=== PATIENT | female | born 1980 | race Caucasian/White ===

== ENCOUNTER 2017-09-25 12:14 | Emergency (ER) | payer OTHER ==
[~2017-09-25] VITALS: Ht 160 cm; Wt 81.6 kg
[~2017-09-25 12:14] MED LIST: HYDR-971 PO; PRED50TA PO
[2017-09-25] MEDS ORDERED: FLUORESCEIN 1MG EYE STRIP. OS ONE (13:00)
[2017-09-25] MEDS ORDERED: TETRACAINE 0.5% OPHTH SOLUTION 4ML BOTTLE. OS ONE (13:00)
[2017-09-25] MEDS ORDERED: NEOM10DR9 TOP (13:09)
--- NOTE | 2017-09-25 13:09 | PHYS DOC ---
Past History Past Medical History: Anxiety, Depression Past Surgical History: Alcohol Use: None Drug Use: None Adult General Chief Complaint Chief Complaint: EYE PROBLEMS HPI HPI 36-year-old at 31 weeks of gestation states she had some hair in her left eye 4 days ago and tried to remove the hair with rubbing her eye and since then has erythema and pain in left eye that gradually getting worse. Patient complaining of yellow discharge in the morning. Patient denies fever and chills , nausea and vomiting. Patient complaining of mild headache. Patient does not wear contact lenses. Review of Systems Review of Systems Constitutional: Denies fever or chills [] Eyes: Reports change in visual acuity, redness, eye pain [] HENT: Denies nasal congestion or sore throat [] Respiratory: Denies cough or shortness of breath [] Cardiovascular: No additional information not addressed in HPI [] GI: Denies abdominal pain, nausea, vomiting, bloody stools or diarrhea [] : Denies dysuria or hematuria [] Musculoskeletal: Denies back pain or joint pain [] Integument: Denies rash or skin lesions [] Neurologic: Denies headache, focal weakness or sensory changes [] Endocrine: Denies polyuria or polydipsia [] All other systems were reviewed and found to be within normal limits, except as documented in this note. Current Medications Current Medications Current Medications Medications (Trade) Dose Ordered Sig/Armaan Start Time Stop Time Status Last Admin Dose Admin Fluorescein Sodium (Ful-Mariana 1mg) 1 strip 1X ONCE 09/25/17 13:00 09/25/17 13:01 DC Tetracaine HCl (Tetracaine) 1 drop 1X ONCE 09/25/17 13:00 09/25/17 13:01 DC Allergies Allergies Allergies Coded Allergies Type Severity Reaction Last Updated Verified quetiapine Allergy Unknown 09/23/15 Yes Physical Exam Physical Exam Constitutional: Well developed, well nourished, mild distress, non-toxic appearance. [] HENT: Normocephalic, atraumatic Eyes: PERRLA, EOMI, left conjunctival erythema and eyelid edema, positive fluorescein test, vision acuity 20 over 20 right eye and 20/25 in left eye Neck: Normal range of motion, no tenderness, supple, no stridor. [] Cardiovascular:Heart rate regular rhythm, no murmur [] Lungs & Thorax: Bilateral breath sounds clear to auscultation [] Neurologic: Alert and oriented X 3, normal motor function, normal sensory function, no focal deficits noted. [] Psychologic: Affect normal, judgement normal, mood normal. [] Current Patient Data Vital Signs Vital Signs Date Time Temp Pulse Resp B/P (MAP) Pulse Ox O2 Delivery O2 Flow Rate FiO2 09/25/17 12:30 98.3 90 18 98 Room Air EKG EKG [] Radiology/Procedures Radiology/Procedures [] Course & Med Decision Making Course & Med Decision Making Evaluation of patient in ER showed 36-year-old female patient with corneal scratch and conjunctiva erythema chart for 4 days. Patient currently is . Prescription for ophthalmic antibiotic was given and patient instructed to follow with oracle forms developer if not getting better in 24-48 hours. Dragon Disclaimer Dragon Disclaimer This electronic medical record was generated, in whole or in part, using a voice recognition dictation system. Departure Departure: Impression: Primary Impression: Corneal abrasion Additional Impressions: Acute conjunctivitis of left eye Currently Disposition: 01 HOME, SELF-CARE (At 1302) Condition: IMPROVED Referrals: PCP,NO (PCP) Patient Instructions: Bacterial Conjunctivitis, Eye - Corneal Abrasion Additional Instructions: Avoid of rubbing your eye Follow-up with your primary care physician in 2-3 days Return to ER if not getting better Scripts Neomycin/Polymyxn B/Gramicidin ([id number] EYE DROP) 10 Ml Drops 2 DROP TOP Q4HRS for 7 Days, DROP Prov: ANGIE GUTIERREZ MD 09/25/17 Problem Qualifiers ANGIE GUTIERREZ MD September 25, 2017 13:09
[2017-09-25 13:14] VITALS: BP 118/81
== END 2017-09-25 13:15 | disposition home or self-care (01) ==
LOC: ER 12:14
DX: O9A.213 Injury, poisoning and certain other consequences of external causes complicating pregnancy, third trimester (principal); S05.02XA Injury of conjunctiva and corneal abrasion without foreign body, left eye, initial encounter; H10.32 Unspecified acute conjunctivitis, left eye; O26.893 Other specified pregnancy related conditions, third trimester; Z3A.31 31 weeks gestation of pregnancy; Z88.8 Allergy status to other drugs, medicaments and biological substances; X58.XXXA Exposure to other specified factors, initial encounter; Y93.89 Activity, other specified; Y99.8 Other external cause status; Y92.89 Other specified places as the place of occurrence of the external cause
CPT/HCPCS: 99283

== ENCOUNTER 2018-08-04 19:39 | Emergency (ER) | payer OTHER ==
[~2018-08-04 19:39] MED LIST changes: +HYDR-3165 PO; -HYDR-971 PO; +NEOM10DR9 TOP
--- NOTE | 2018-08-04 19:51 | ED.ADGEN ---
Past History Past Medical History: Anxiety, Depression Past Surgical History: Alcohol Use: None Drug Use: None Adult General Chief Complaint Chief Complaint ".. I just had a D/C or really a D & E at .. I have some nausea.. and discomfort..." HPI HPI Patient is a 37 year old female who presents with above hx and complaints subjective fever, nausea and malaise after history of D&C/D & E at . Patient reports no active current bleeding or significant vaginal discharge. No history immunosuppression. Discussed with patient would have to complete a exam and obtain labs on patient. 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 Patient did not receive a physical exam. Patient left before complete eval. Unaware pt. left until advised by nursing she had already departed. Review of Systems Review of Systems Constitutional: Subjective fever Eyes: Denies change in visual acuity, redness, or eye pain [] HENT: Denies nasal congestion or sore throat [] Respiratory: Denies cough or shortness of breath [] Cardiovascular: No additional information not addressed in HPI [] GI: Complaints of abdomen abdominal pain, nausea,. Denies vomiting, bloody stools or diarrhea [] : Denies dysuria or hematuria [] Musculoskeletal: Denies back pain or joint pain [] Integument: Denies rash or skin lesions [] Neurologic: Denies headache, focal weakness or sensory changes [] Endocrine: Denies polyuria or polydipsia [] All other systems were reviewed and found to be within normal limits, except as documented in this note. Family History Family History Noncontributory Current Medications Current Medications See nursing for home meds Allergies Allergies Allergies Coded Allergies Type Severity Reaction Last Updated Verified quetiapine Allergy Unknown 09/23/15 Yes Physical Exam Physical Exam Constitutional: Well developed, well nourished, reports moderate distress, non- toxic appearance. [] Patient left before exam Psychologic: Affect anxious, judgement normal, mood normal. [] Current Patient Data Vital Signs Vital Signs Date Time Temp Pulse Resp B/P (MAP) Pulse Ox O2 Delivery O2 Flow Rate FiO2 08/04/18 20:05 99.2 EKG EKG [] Radiology/Procedures Radiology/Procedures [] Course & Med Decision Making Course & Med Decision Making Pertinent Labs and Imaging studies reviewed. (See chart for details) [] Final Impression Final Impression 1. History of subjective fevers and abdomen discomfort-post D&C/D &E for demise. Left before completing evaluation Dragon Disclaimer Dragon Disclaimer This electronic medical record was generated, in whole or in part, using a voice recognition dictation system. Discharge Summary Visit Information Final Diagnosis Problems Medical Problems: (1) Left against medical advice Status: Acute Brief Hospital Course Allergies Allergies Coded Allergies Type Severity Reaction Last Updated Verified quetiapine Allergy Unknown 09/23/15 Yes Vital Signs Vital Signs Date Time Temp Pulse Resp B/P (MAP) Pulse Ox O2 Delivery O2 Flow Rate FiO2 08/04/18 20:05 99.2 Brief Hospital Course Ms. Gaines is a 37 old female who presented with subjective fevers and nausea post D&C/D& E at . Left before labs or exam. Discharge Information Condition at Discharge: Stable Dischare Medications Active Scripts Active [id number] Eye Drop (Neomycin/Polymyxn B/Gramicidin) 10 Ml Drops 2 Drop TOP Q4HRS 7 Days Prednisone 50 Mg Tablet 1 Tab PO DAILY [place] 5-325 Tablet (Hydrocodone Bit/Acetaminophen) 1 Each Tablet 1-2 Tab PO PRN Q6HRS PRN Dragon Disclaimer This chart was dictated in whole or in part using Voice Recognition software in a busy, high-work load, and often noisy Emergency Department environment. It may contain unintended and wholly unrecognized errors or omissions. HARRY PRUITT MD Aug 04, 2018 19:51
== END 2018-08-04 20:37 | disposition left against medical advice (07) ==
LOC: ER 19:39
DX: R50.82 Postprocedural fever (principal); G89.18 Other acute postprocedural pain; R10.9 Unspecified abdominal pain; R11.0 Nausea; R53.81 Other malaise; F41.9 Anxiety disorder, unspecified; F32.9 Major depressive disorder, single episode, unspecified; Z88.8 Allergy status to other drugs, medicaments and biological substances
CPT/HCPCS: 99281

== ENCOUNTER 2018-12-18 10:15 | Emergency (ER) | payer OTHER ==
[~2018-12-18] VITALS: Ht 160 cm; Wt 65.0 kg
[2018-12-18 10:23] VITALS: BP 127/72
[2018-12-18] MEDS ORDERED: MELO7.5T29 PO (10:33)
[2018-12-18] MEDS ORDERED: HYDR-3165 PO (10:33)
[2018-12-18] MEDS ORDERED: AMOX500T PO (10:33)
--- NOTE | 2018-12-18 10:33 | PHYS DOC ---
Past History Past Medical History: Anxiety, Depression, Other Additional Past Medical Histor: chronic pain management with Suboxone Past Surgical History: Smoking: Cigarettes Alcohol Use: None Drug Use: None Adult General Chief Complaint Chief Complaint: DENTAL PROBLEM HPI HPI Patient is a 37-year-old female presents complaining of right upper dental pain. This started 2 days ago. She has not seen a dentist but has an appointment scheduled for 2 days from now. Increased pain with touch. Notes swelling in her right face. No trauma. No fever. Cold also makes this worse. No difficulty swallowing. Times are moderate to severe in intensity.[] Review of Systems Review of Systems Constitutional: Denies fever or chills [] Eyes: Denies change in visual acuity, redness, or eye pain [] HENT: Denies nasal congestion or sore throat, see history of present illness [] Respiratory: Denies cough or shortness of breath [] Cardiovascular: No chest pain or palpitations[] GI: Denies abdominal pain, nausea, vomiting, bloody stools or diarrhea [] : Denies dysuria or hematuria [] Musculoskeletal: Denies back pain or joint pain [] Integument: Denies rash or skin lesions [] Neurologic: Denies headache, focal weakness or sensory changes [] Endocrine: Denies polyuria or polydipsia [] All other systems were reviewed and found to be within normal limits, except as documented in this note. Allergies Allergies Allergies Coded Allergies Type Severity Reaction Last Updated Verified quetiapine Allergy Unknown 09/23/15 Yes Physical Exam Physical Exam Constitutional: Well developed, well nourished, no acute distress, non-toxic appearance. [] HENT: Normocephalic, atraumatic, bilateral external ears normal, oropharynx moist, no oral exudates, tooth #2 has tenderness to percussion, there is wides pread dental DKA and multiple missing teeth. There is no drainable abscess appreciated. There is no evidence of Lokesh angina, uvula is midline. Nose normal. [] Eyes: PERRLA, EOMI, conjunctiva normal, no discharge. [] Neck: Normal range of motion, no tenderness, supple, no stridor. [] Cardiovascular:Heart rate regular rhythm, no murmur [] Lungs & Thorax: Bilateral breath sounds clear to auscultation [] Abdomen: Not examined. [] Skin: Warm, dry, no erythema, no rash. [] Back: No tenderness, no CVA tenderness. [] Extremities: No tenderness, no cyanosis, no clubbing, ROM intact, no edema. [] Neurologic: Alert and oriented X 3, normal motor function, normal sensory function, no focal deficits noted. [] Psychologic: Affect normal, judgement normal, mood normal. [] EKG EKG [] Radiology/Procedures Radiology/Procedures [] Course & Med Decision Making Course & Med Decision Making Pertinent Labs and Imaging studies reviewed. (See chart for details) Medical decision making: Patient appears to have appear apical abscess of tooth #2. There is no evidence of systemic toxicity. No meningitis or encephalitis. No peritonsillar abscess. We'll start patient on oral outpatient antibiotics and have her follow-up with her dentist as scheduled. Will also prescribe short-term pain medicine to assist during this episode.[] Dragon Disclaimer Dragon Disclaimer This electronic medical record was generated, in whole or in part, using a voice recognition dictation system. Departure Departure: Impression: Primary Impression: Dental abscess Disposition: 01 HOME, SELF-CARE Condition: IMPROVED Referrals: JON CHRISTIE MD (PCP) Follow-up in 2 days Patient Instructions: Dental Abscess Additional Instructions: Follow-up with your regular doctor in 2 days injured dentist as scheduled in 2 days. Take the medication as prescribed. Return to the ER if worsening pain, fever of more than 101, or any other concerns. Scripts Hydrocodone Bit/Acetaminophen ([place] 5-325 TABLET) 1 Each Tablet 1 TAB PO Q4-6HRS for severe pain, #20 TAB Prov: TOMER MEDINA DO 12/18/18 Meloxicam (MELOXICAM) 7.5 Mg Tablet 7.5 MG PO DAILY for PAIN, #20 TAB Prov: TOMER MEDINA DO 12/18/18 Amoxicillin (AMOXICILLIN) 500 Mg Tablet 500 MG PO TID for dental infection for 10 Days, #30 TAB Prov: TOMER MEDINA DO 12/18/18 TOMER MEDINA DO Dec 18, 2018 10:33
== END 2018-12-18 10:40 | disposition home or self-care (01) ==
LOC: ER 10:15
DX: K04.7 Periapical abscess without sinus (principal); F17.210 Nicotine dependence, cigarettes, uncomplicated; G89.29 Other chronic pain; Z88.8 Allergy status to other drugs, medicaments and biological substances
CPT/HCPCS: 99283

== ENCOUNTER 2020-03-05 22:51 | Emergency (ER) | payer MEDICAID, OTHER ==
[~2020-03-05] VITALS: Ht 160 cm; Wt 92.1 kg
[~2020-03-05 22:51] MED LIST changes: +AMOX500T PO; +MELO7.5T29 PO
--- NOTE | 2020-03-05 23:17 | PHYS DOC ---
Past History Past Medical History: Anxiety, Depression, UTI, Other Additional Past Medical Histor: chronic pain management with Suboxone Past Surgical History: Smoking: Cigarettes Alcohol Use: None Drug Use: None General Adult HPI: HPI: ".. I think .. I got a UTI... I ve had them before.. " Patient is a 39 year old female who presents with above hx and complaints dysuria. Patient states she has had approximately 2 days of dysuria. No history immunosuppression. No history of recent travel outside the [place] area. Patient follow-up at a local clinic for care. Review of Systems: Review of Systems: Constitutional: Denies fever or chills Eyes: Denies change in visual acuity HENT: Denies nasal congestion or sore throat Respiratory: Denies cough or shortness of breath Cardiovascular: Denies chest pain or edema GI: Denies abdominal pain, nausea, vomiting, bloody stools or diarrhea : Complaints of dysuria Musculoskeletal: Denies back pain or joint pain Integument: Denies rash Neurologic: Denies headache, focal weakness or sensory changes Endocrine: Denies polyuria or polydipsia Lymphatic: Denies swollen glands Psychiatric: Denies depression or anxiety Heart Score: Risk Factors: Risk Factors: DM, Current or recent (<one month) smoker, HTN, HLP, family history of CAD, obesity. Risk Scores: Score 0 - 3: 2.5% MACE over next 6 weeks - Discharge Home Score 4 - 6: 20.3% MACE over next 6 weeks - Admit for Clinical Observation Score 7 - 10: 72.7% MACE over next 6 weeks - Early Invasive Strategies Family History: Family History: Noncontributory Current Medications: Current Meds: See nursing for home meds Allergies: Allergies: Allergies Coded Allergies Type Severity Reaction Last Updated Verified quetiapine Allergy Unknown 09/23/15 Yes Physical Exam: PE: Constitutional: Moderate acute distress, non-toxic appearance. [] HENT: Normocephalic, atraumatic, bilateral external ears normal, oropharynx moist, no oral exudates, nose normal. [] Eyes: PERRLA, EOMI, conjunctiva normal, no discharge. [] Neck: Normal range of motion, no tenderness, supple, no stridor. [] Cardiovascular:Heart rate regular rhythm, no murmur [] Lungs & Thorax: Bilateral breath sounds clear to auscultation [] Abdomen: Bowel sounds normal, soft, no tenderness, no masses, no pulsatile masses. Suprapubic pubic tenderness. Old surgery scar. Skin: Warm, dry, no erythema, no rash. [] Back: No tenderness, no CVA tenderness. [] Extremities: No tenderness, no cyanosis, no clubbing, ROM intact, no edema. [] Neurologic: Alert and oriented X 3, normal motor function, normal sensory function, no focal deficits noted. [] Psychologic: Affect anxious, judgement normal, mood normal. [] EKG: EKG: [] Radiology/Procedures: Radiology/Procedures: [] Course & Med Decision Making: Course & Med Decision Making Pertinent Labs and Imaging studies reviewed. (See chart for details) Patient presents he drinks. Patient push fluids. Patient take Tylenol and ibuprofen for pain. Patient take Bactrim DS twice a day. After completing Bactrim take Diflucan 100 mg daily for for 3 days. Follow-up urine culture. Return if any concerns. Patient expect urine to turn red after Pyridium given here in the emergency department. Impression: 1. UTI [] Dragon Disclaimer: Dragon Disclaimer: This electronic medical record was generated, in whole or in part, using a voice recognition dictation system. Departure Departure: Disposition: 01 DC HOME SELF CARE/HOMELESS Condition: STABLE Referrals: NON,STAFF (PCP) Scripts Fluconazole (DIFLUCAN) 100 Mg Tablet 100 MG PO DAILY for uti, #3 TAB Prov: HARRY PRUITT MD 03/06/20 Cephalexin (KEFLEX) 500 Mg Capsule 500 MG PO TID for UTI for 10 Days, BOT Prov: HARRY PRUITT MD 03/06/20 Ming Disclaimer This chart was dictated in whole or in part using Voice Recognition software in a busy, high-work load, and often noisy Emergency Department environment. It may contain unintended and wholly unrecognized errors or omissions. Dragon Disclaimer This chart was dictated in whole or in part using Voice Recognition software in a busy, high-work load, and often noisy Emergency Department environment. It may contain unintended and wholly unrecognized errors or omissions. Dragon Disclaimer This chart was dictated in whole or in part using Voice Recognition software in a busy, high-work load, and often noisy Emergency Department environment. It may contain unintended and wholly unrecognized errors or omissions. HARRY PRUITT MD Mar 05, 2020 23:17
[2020-03-05 23:26] VITALS: BP 119/76
[2020-03-05 23:53] LABS: BARBITURATES NEG (NEG); BENZODIAZEPINES NEG (NEG); CANNABINOIDS POS (NEG); COCAINE NEG (NEG); METHADONE NEG (NEG); OPIATES NEG (NEG); PHENCYCLIDINE NEG (NEG)
[2020-03-05 23:54] LABS: BACTERIA,URINE FEW /HPF (0-FEW); BILIRUBIN,URINE NEG (NEG); CLARITY,URINE HAZY; COLOR,URINE YELLOW; GLUCOSE,URINE NEG (NEG); NITRITE,URINE NEG (NEG); RBC,URINE >40 /HPF (0-2); SQUAMOUS EPITHELIAL CELL,UR FEW /LPF; UROBILINOGEN,URINE 0.2 mg/dL (0.2 mg/dL); WBC,URINE >40 /HPF (0-4)
[2020-03-05 23:55] LABS: AMPHETAMINE/METHAMPHETAMINE NEG (NEG)
[2020-03-06] MEDS ORDERED: FLUC100T7 PO (00:51)
[2020-03-06] MEDS ORDERED: CEPH-264 PO (00:51)
[2020-03-06] MEDS ORDERED: KETOROLAC 30 MG/ML VIAL. ONE ×2 (00:58→01:00)
[2020-03-06] MEDS ORDERED: KETOROLAC 60 MG/2 ML VIAL. IM ONE (01:00)
[2020-03-06] MEDS ORDERED: cefTRIAXone IM 1 GM VIAL IM ONE (01:00)
[2020-03-06] MEDS ORDERED: PHENAZOPYRIDINE 200 MG TABLET. PO ONE (01:00)
== END 2020-03-06 01:30 | disposition home or self-care (01) ==
LOC: ER 22:51
DX: N39.0 Urinary tract infection, site not specified (principal); F17.210 Nicotine dependence, cigarettes, uncomplicated; G89.29 Other chronic pain; Z87.440 Personal history of urinary (tract) infections; Z88.8 Allergy status to other drugs, medicaments and biological substances
CPT/HCPCS: 36415; 80307; 81001; 81025; 87086; 96372; 99284; J0696; J1885; 87077; 87186